=== PATIENT | male | born 1940 | race Caucasian/White ===

== ENCOUNTER 2016-07-16 07:49 | Outpatient (CLI) | payer MEDICARE, BC ==
[~2016-07-16] VITALS: Ht 185.4 cm; Wt 81.8 kg
--- NOTE | ~2016-07-16 | HEMODYNAMI ---
PATIENT:KITTY IRWIN MEDICAL RECORD: [id number] : 36 LOCATION:D.CAT ADMISSION DATE: 07/16/16 Generatedon:07/16/20169:33 Patient name: KITTY IRWIN Patient #: [id number] SSN: : 1940 Date of study: 07/16/2016 Page: Of Hemodynamic Procedure Report Patient Data Patient Demographics Procedure consent was obtained First Name: KITTY Gender: Male Last Name: ALIDA : 1940 Middle Initial: J Age: 76 year(s) Patient #: [id number] Race: Unknown Additional ID: [id number] Contact details Address: [address] [address] State: [place] City: [place] Zip code: [address] Past Medical History Allergies: No known allergies Admission Admission Data Admission Date: 07/16/2016 Admission Time: 7:49 Procedure Procedure Types Cath Procedure Diagnostic Procedure Cardioversion Procedure Description Procedure Date Procedure Date: 07/16/2016 Procedure Start Time: 9:05 Procedure Staff Name Function David Hair MD Performing Physician Analy Pack RN Nurse Danya Viramontes RT Monitor eDvan De La Paz RT Pulp Mixer Tanmay Hayes MD Additional personnel Procedure Data Cath Procedure Fluoroscopy Diagnostic fluoroscopy Total fluoroscopy Time: 0 time: 0 min min Procedure Medications Medication Administration Route Dosage Oxygen NC 2 l/min Refer to Anesthesia Notes for Sedation Medications Diprivan 1% I.V. 100 mg (Propofol) Hemodynamics Rest Heart Rate: 45 (bpm) Snapshots Pre Cath Intra NCS Post Cath Vital Signs Time Heart Resp SPO2 etCO2 [id number] Respiration NIBP (mmHg) Rhythm Pain Sedation Rate (ipm) (%) (mmHg) (mmHg) (CO2) (ipm) Status Level (bpm) 9:21:39 44 20 97 17.8 0 19 Measuring NSR 0 (11 ) 10(A) , No pain 9:21:49 44 26 97 29.7 1.4 21 181/69(137) NSR 0 (11 ) 8(A) , No pain 9:26:13 65 14 89 29 0 118/70(95) NSR 0 (11 ) 9(A) , No pain 9:30:21 66 20 99 8.9 0 10 114/74(110) NSR 0 (11 ) 10(A) , No pain Medications Time Medication Route Dose Verified Delivered Reason Notes Effectivene ss by by 9:21:14 Diprivan 1% I.V. [address] Hayes for (Propofol) mg Reginaldo BUTLER sedation 9:21:50 Oxygen NC 2 David Beckford used for l/min Reginaldo Pack parenting skills instructor 9:21:54 Refer to Davidmargarette Beckford Anesthesia Reginaldo Pack RN Notes for Sedation Medications Procedure Log Time Note 9:08:04 Devan De La Paz RT(R) sent for patient. Start room use. 9:08:05 Time tracking: Regular hours 9:08:14 Plan of Care:Hemodynamics will remain stable., Cardiac rhythm will remain stable., Comfort level will be maintained., Respiratory function will remain adequate., Patient/ family verbilizes understanding of procedure., Procedure tolerated without complication., Recovers from procedure without complications.. 9:13:06 Patient received from Pre/Post Procedure Room to CCL 1 Alert and oriented. Tansferred to table in Supine position. 9:13:07 Warm blankets applied, and dallin hugger turned on for patient comfort. 9:13:07 Correct patient and procedure confirmed by team. 9:13:09 Signed procedure consent form obtained from patient. 9:13:10 ECG and BP/O2 sat monitors applied to patient. 9:13:11 Full Disclosure recording started 9:13:58 H&P Date Dictated: 07/06/2016 Within 30 days and on chart., H&P Addendum completed by physician on day of procedure. (MUST COMPLETE FOR ALL OUTPATIENTS). 9:14:00 Pre-procedure instructions explained to patient. 9:14:01 Pre-op teaching completed and patient verbalized understanding. 9:14:05 Family in waiting room. 9:14:44 Patient allergic to No known allergies 9:14:54 ----Pre-sedation anethsthesia assessment.---- 9:15:09 See anestesia note for assessment 9:15:26 Patient pain scale 0/10 ?. 9:15:34 IV patent on arrival in left hand with 0.9% NaCl at [facility]. 9:15:39 Lab results completed and on chart. 9:16:22 Alarms reviewed by Isael Beal 9:16:30 Quick combo pads placed on patients chest and back. 9:16:38 Quick Combo opened to sterile field. 9:18:57 Baseline sample Acquired. 9:19:24 Dr Hayes present and monitoring patient for TIVA. 9:19:49 Vital chart was started 9:20:02 Final Timeout: patient, procedure, and site verified with staff and physician. All members of the team are in agreement. 9:20:07 Physical assessment completed. ASA score P 2 - A patient with mild systemic disease as per David Hair MD. 9:20:13 Sedation plan: TIVA Propofol 9:21:14 Diprivan 1% (Propofol) 100 mg I.V. was given by DR Hayes; for sedation; 9:21:50 Oxygen 2 l/min NC was given by Analy Pack RN; used for procedure; 9:21:54 Refer to Anesthesia Notes for Sedation Medications was given by Analy Pack RN; ; 9:23:13 Defibrillator synced and charged to 100 Joules. 9:23:17 Shock delivered. 9:23:28 Patient cardioverted to 1st degree heart block. 9:24:50 Procedure ended.(Physican Out) 9:30:03 Fluoroscopy time 00.00 minutes. 9:30:23 Post procedure rhythm: sinus bradycardia 9:30:46 Post procedure instruction explained to patient.Patient verbalizes understanding. 9:30:47 Patient needs reinforcement of post procedure teaching. 9:30:54 Procedure and supply charges have been captured, reviewed, submitted and are correct. 9:31:12 See physician's report for complete and final results. 9:31:16 Report given to Pre/Post Procedure Room. 9:33:00 Vital chart was stopped 9:33:07 Patient transfered to Pre/Post Procedure Room with Stretcher. 9:33:18 End room use (Document Last) Device Usage Item Manufacture Quantity Catalog Hospital Part Current Minimal Lot# / Name Number Charge Number Stock Stock Verena francis# Code [employer] 1 [id number] Combo Signature Audit [place] Stage Time Signature Unsigned Intra-Procedure 07/16/2016 Danya 9:33:29 AM Counts RT(R) Signatures Monitor : Danya Signature : Counts RT Date : Time : [address] [place] [address]
[2016-07-16] MEDS ORDERED: LISINOPRIL10 MG PO (08:16)
[2016-07-16] MEDS ORDERED: BETAPACE 80 MG80 MG PO (08:16)
[2016-07-16] MEDS ORDERED: XARELTO15 MG PO (08:16)
[2016-07-16 08:24] VITALS: BP 159/70; Ht 185.4 cm; Wt 81.8 kg
[2016-07-16 08:37] LABS: BASOPHILS 0.6 % (0.0-2.0); EOSINOPHILS 1.9 % (0-7); HEMATOCRIT 41.5 % (42.0-54.0); IMMATURE GRANULOCYTES 0.3 % (0-5); LYMPHOCYTES 32.9 % (15-50); MCH 28.2 pg (26.0-34.0); MCHC 33.7 g/dL (31.0-37.0); MCV 83.5 fL (80.0-100.0); MEAN PLATELET VOLUME 9.9 fL (7.4-10.4); MONOCYTES 8.8 % (2-11); NEUTROPHILS 55.5 % (40-80); PLATELET COUNT 209 10x3/uL (130-400); RBC 4.97 10x6/uL (4.20-6.10); RDW 14.1 % (11.5-14.5); WBC 7.3 10x3/uL (4.8-10.8)
[2016-07-16 08:47] LABS: INR 1.67 (0.85-1.17); PROTIME 19.6 SECONDS (11.6-15.0)
[2016-07-16 09:05] LABS: ANION GAP 11.3 mmol/L (8-16); CALCIUM 8.7 mg/dL (8.5-10.1); CARBON DIOXIDE 28.1 mmol/L (21.0-32.0); CREATININE - SERUM 1.2 mg/dL (0.6-1.3); POTASSIUM - SERUM 4.4 mmol/L (3.5-5.1)
--- NOTE | 2016-07-16 09:55 | NUR ---
RESTING IN BED, SPEAKING WITH FAMILY AT BEDSIDE. CARE TRANSITION MGR SHOWS SINUS LAWSON AT RATE OF 51. 2L NC, NO RESP DISTRESS, NO C/O PAIN. WILL CONTINUE TO MONITOR.
--- NOTE | 2016-07-16 10:25 | NUR ---
RESTING IN BED, FAMILY AT BEDSIDE. VSS, NO RESP DISTRESS NOTED. NO C/O NAUSEA OR CHEST PAIN. WILL CONTINUE TO MONITOR.
--- NOTE | 2016-07-16 10:40 | NUR ---
RONEL TRAY GIVEN. NO C/O N/V AT THIS TIME. NO DISTRESS NOTED. CM SHOWS RATE OF 40. VSS.
--- NOTE | 2016-07-16 12:00 | NUR ---
LEFT FA IV D/C'D WITH CATHETER INTACT. TOLERATED WELL. ASSISTED TO SIDE OF BED TO GET DRESSED.
--- NOTE | 2016-07-16 12:11 | NUR ---
DISCHARGE INSTRUCTIONS GIVEN. PT AND FAMILY VERBALIZED UNDERSTANDING.
--- NOTE | 2016-07-16 12:17 | NUR ---
TAKEN OUT FRONT VIA WHEELCHAIR BY MEMBER OF CATH CARE TEAM. LEFT FACILITY WITH FAMILY MEMBER.
--- NOTE | 2016-08-11 08:17 | OP ---
PATIENT NAME: KITTY GODOY MEDICAL RECORD: [id number] :36 LOCATION:D.CAT ADMISSION DATE: SURGEON: JUSTINO MARIA M.D. DATE OF OPERATION: 07/16/2016 Cardioversion Note REFERRING PHYSICIAN: Kyaw Godoy MD PROCEDURE PERFORMED: Cardioversion. INDICATION: A 76-year-old gentleman, presents with persistent atrial flutter. DESCRIPTION OF PROCEDURE: The patient was brought back to the offset label rewinder. It was confirmed he remained in atrial flutter with variable block. He received anesthesia in the form of propofol. Once the patient was adequately sedated, he received 1 discharge of 100 joules. This resulted in yazdanism of sinus rhythm. He tolerated the procedure well without any apparent complication. IMPRESSION: Successful cardioversion with yazdanism of sinus rhythm. TRANSINT:[id number] Voice Confirmation ID: [id number] DOCUMENT ID: [id number] JUSTINO MARIA M.D. at 0817 CC: [id number] DICTATION DATE: 07/16/16926 EDITORIAL PROJECT MANAGER: 07/16/16 1012 [facility] CLI 07/16/[address] [place] [address]
== END 2016-07-16 12:17 | disposition home or self-care (01) ==
LOC: D.CATH 07:49
PROVIDERS: Internal Medicine Cardiovascular Disease
DX: I48.92 Unspecified atrial flutter (principal)

== ENCOUNTER 2019-08-23 10:49 | Observation (INO) | payer MEDICARE, BC ==
[~2019-08-23] VITALS: Ht 185.4 cm; Wt 82.6 kg
[2019-08-23] VITALS (11 sets, daily range): BP systolic 111–164; BP diastolic 44–64; Ht 185.4 cm; Wt 82.6 kg
--- NOTE | ~2019-08-23 | HEMODYNAMI ---
PATIENT:KITTY IRWIN MEDICAL RECORD: [id number] : 36 LOCATION:D.CAT ADMISSION DATE: 08/23/19 Generatedon:08/23/201913:17 Patient name: KITTY IRWIN Patient #: [id number] SSN: [id number] : 1940 Date of study: 08/23/2019 Page: Of Hemodynamic Procedure Report Patient Data Patient Demographics Procedure consent was obtained First Name: KITTY Gender: Male Last Name: ALIDA : 1940 [facility] Initial: J Age: 79 year(s) Patient #: [id number] Race: SSN: [id number] Additional ID: [id number] Contact details Address: [place] [address] State: [place] City: [place] Zip code: [address] Past Medical History Allergies: No known allergies Admission Admission Data Admission Date: 08/23/2019 Admission Time: 10:49 Arrival Date: 08/23/2019 Arrival Time: 0:00 Lab Results Lab Result Date: 08/23/2019 Lab Result Time: 0:00 CBC Name Units Result Min Max Hematocrit % 38.1 *-(----)-- 42 54 Hemoglobin g/dl 12.5 *-(----)-- 13.5 17.5 Procedure Procedure Types Cath Procedure Diagnostic Procedure PPM/ICD PPM Dual Implant Sedation Charges Moderate Sedation up to 30 minutes Procedure Description Procedure Date Procedure Date: 08/23/2019 Procedure Start Time: 12:39 Procedure End Time: 13:14 Procedure Staff Name Function Anibal Buckley MD Performing Physician Dale Martinez MD Assisting physician Keeley Sanchez RT Monitor Varghese Hess RN Nurse Willa Mejia RT Scrub Indication Sick Sinus Syndrome Procedure Data Cath Procedure Fluoroscopy Diagnostic fluoroscopy Total fluoroscopy Time: 3.4 time: 3.4 min min Diagnostic fluoroscopy Total fluoroscopy dose: dose: 140.08 mGy 140.08 mGy Estimated blood loss: 10 ml Procedure Complications No complications Procedure Medications Medication Administration Route Dosage 0.9% NaCl I.V. 100 ml/hr Oxygen etCO2 Nasal cannula 4 l/min Lidocaine 1% added to field 20 Ancef (1Gm/50ml NS) I.V.P.B 1 g Ancef Irrigation 1 g (1gm/500ml NS) Versed I.V. 2 mg Fentanyl I.V. 100 mcg Versed I.V. 1 mg Hemodynamics Rest HGB: 12.5 (g/dl) Heart Rate: 44 (bpm) Snapshots Pre Cath Intra NCS Post Cath Vital Signs Time Heart Resp SPO2 etCO2 NIBP (mmHg) Rhythm Pain Sedation Rate (ipm) (%) (mmHg) Status Level (bpm) 12:28:19 46 12 99 27 151/64(111) SB 0 (11) 10(A) , No pain 12:32:41 44 10 99 9 131/59(90) SB 0 (11) 10(A) , No pain 12:36:59 42 21 98 23.2 102/51(83) SB 0 (11) 10(A) , No pain 12:41:05 177 15 96 27.7 108/52(84) SB 0 (11) 10(A) , No pain 12:45:13 43 15 91 26.2 110/55(75) SB 0 (11) 9(A) , No pain 12:49:21 82 15 95 21.7 79/52(74) SB 0 (11) 9(A) , No pain 12:54:16 42 16 96 18.7 115/58(88) SB 0 (11) 9(A) , No pain 12:58:19 95 16 96 24 121/73(91) Paced 0 (11) 10(A) , No pain 13:02:27 87 16 96 19.5 120/72(86) Paced 0 (11) 10(A) , No pain 13:06:33 84 18 96 9 131/74(99) Paced 0 (11) 10(A) , No pain 13:10:43 63 23 92 13.4 134/74(112) Paced 0 (11) 10(A) , No pain Medications Time Medication Route Dose Verified Delivered Reason Notes Effectiv eness by by 12:26:09 0.9% NaCl I.V. 100 Varghese Varghese Per ml/hr Jimena Hess physician RN RN 12:26:23 Oxygen etCO2 4 Varghese Varghese for low 02 Nasal l/min Lorigan Lorigan sats cannula RN RN 12:26:55 Lidocaine added 20ml Varghese Varghese for local 1% to vial Lorigan Lorigan anesthetic field ( x 2 RN RN ) 12:28:49 Ancef I.V.P.B 1 g Varghese Varghese Per (1Gm/50ml Lorigan Lorigan physician NS) RN RN 12:29:50 Ancef Topical 1 g Varghese Varghese used for Irrigation ( added Lorigan Lorigan procedure (1gm/500ml to RN RN NS) field ) 12:37:08 Versed I.V. 2 mg Varghese Varghese for Lorigan Lorigan sedation RN RN 12:37:22 Fentanyl I.V. 100 Varghese Varghese for mcg Lorigan Lorigan sedation RN RN 12:39:20 Versed I.V. 1 mg Varghese Varghese for Lorigan Lorigan sedation RN spring assembler supervisor Log Time Note 12:03:41 Informed consent obtained and on chart 12:04:25 Indication : Sick Sinus Syndrome 12:04:33 Arrival Date: 08/23/2019 12:00:00 AM 12:04:58 Procedure Status PPM/ Gen Change/ Lead Revision/ Temp. 12:05:02 Varghese Hess RN sent for patient. Start room use. 12:05:08 Time tracking: Regular hours (M-F 7:00 - 5:00) 12:05:15 Plan of Care:Hemodynamics will remain stable., Cardiac rhythm will remain stable., Comfort level will be maintained., Respiratory function will remain adequate., Patient/ family verbilizes understanding of procedure., Procedure tolerated without complication., Recovers from procedure without complications.. 12:05:40 [employer] u.s. representative WHITNEY HODGE present for procedure. 12:20:07 Patient received from Pre/Post Procedure Room to CCL 3 Alert and oriented. Tansferred to table in Supine position. 12:25:21 Warm blankets applied, and dallin hugger turned on for patient comfort. 12:25:22 Correct patient and procedure confirmed by team. 12:26:09 0.9% NaCl 100 ml/hr I.V. was administered by Varghese Hess RN; Per physician; Verbal order read back and verified. 12:26:23 Oxygen 4 l/min etCO2 Nasal cannula was administered by Varghese Hess RN; for low 02 sats; Verbal order read back and verified. 12:26:55 Lidocaine 1% 20ml vial ( x 2 ) added to field was administered by Varghese Hess RN; for local anesthetic; Verbal order read back and verified. 12:27:02 Vital chart was started 12:28:49 Ancef (1Gm/50ml NS) 1 g I.V.P.B was administered by Varghese Hess RN; Per physician; Verbal order read back and verified. 12:29:50 Ancef Irrigation (1gm/500ml NS) 1 g Topical ( added to field ) was administered by Varghese Hess RN; used for procedure; Verbal order read back and verified. 12:32:09 ECG and BP/O2 sat monitors applied to patient. 12:32:10 Baseline sample Acquired. 12:32:26 Rhythm: sinus bradycardia 12:32:29 Full Disclosure recording started 12:32:38 H&P Date Dictated: 08/23/2019 H&P Addendum completed by physician on day of procedure. (MUST COMPLETE FOR ALL OUTPATIENTS), New H&P dictated by physician.. 12:32:39 Pre-procedure instructions explained to patient. 12:32:40 Pre-op teaching completed and patient verbalized understanding. 12:32:49 Family unavailable. 12:32:52 Patient NPO since Midnight. 12:33:08 Patient allergic to No known allergies 12:33:13 Is the patient allergic to Iodine/contrast media? No. 12:33:17 Was the patient premedicated? Yes 12:33:21 Is patient on blood thinner?No 12:33:28 ACC The patient was administered the following blood thiners within the last 24 hours: None 12:34:08 Patient diabetic? No. 12:34:14 - 12:34:15 ----Pre-sedation anethsthesia assessment.---- 12:34:20 Previous problem with sedation/anesthesia? No ? 12:34:22 Snore? Yes 12:34:26 Sleep apnea? No 12:34:28 Deviated septum? No 12:34:30 Opens mouth fully? Yes 12:34:33 Sticks out tongue? Yes 12:34:39 Airway obstruction? No ? 12:34:46 Dentures? Yes in tight 12:35:07 IV patent on arrival in left forearm with 0.9% NaCl at [facility]. 12:35:48 Lab Result : Hemoglobin 12.5 g/dl 12:35:48 Lab Result : Hematocrit 38.1 % 12:36:02 Left chest area was prepped with chlora-prep and draped in sterile fashion 12:36:04 Alarms reviewed by R. N. 12:36:04 Sharps counted by scrub and verified by R.N. 12:36:06 Physician arrived 12:36:07 --------ALL STOP TIME OUT------ 12:36:08 Final Timeout: patient, procedure, and site verified with staff and physician. All members of the team are in agreement. 12:36:17 Left chest site verified by team. 12:36:28 Fire Safety Assessment: A--An alcohol-based skin anteseptic being used preoperatively., B--The operative or invasive procedure is being performed above the xiphoid process or in the oropharynx., D--An ESU, laser, or fiber-optic light is being used., E--There are other possible contributors. 12:36:35 Physical assessment completed. ASA score P 2 - A patient with mild systemic disease as per Anibal Buckley MD. 12:36:44 Sedation plan: IV Moderate Sedation Medication:Versed, Fentanyl 12:36:53 Use device set BRETT PPM 12:36:55 2-0 Ticron Multipack ([id number]) opened to sterile field. 12:36:56 3-0 Vicryl Single Pack [id number] opened to sterile field. 12:36:56 5-0 Monocryl PS2 [id number] opened to sterile field. 12:36:57 Cautery Tip Cdl Truck Driver opened to sterile field. 12:36:58 Cautery Pushbutton Pencil opened to sterile field. 12:36:59 Mepilex Dressing (571913) opened to sterile field. 12:37:08 Versed 2 mg I.V. was administered by Varghese Hess RN; for sedation; Verbal order read back and verified. 12:37:22 Fentanyl 100 mcg I.V. was administered by Varghese Hess RN; for sedation; Verbal order read back and verified. 12:38:54 Procedure started. 12:39:16 Pre sharps counted by scrub and verified by RN: Sutures: 7; Sponges: 5; Stick needles: 2; Skin needles: 2; Blade: 1; Cautery: 1 12:39:20 Versed 1 mg I.V. was administered by Varghese Hess RN; for sedation; Verbal order read back and verified. 12:39:22 Grounding pad site Left thigh. 12:39:24 Grounding pad site free from injury. 12:39:29 Lidocaine 1% was administered to left subclavicular area by Dale Martinez MD . 12:41:01 Incision made to left subclavicular area. 12:41:11 Generator pocket made/opened. 12:43:[address] [employer] [address]T [address] Generator [id number] opened to sterile field. 12:43:34 Left subclavian vein accessed with 7Fr Peel Away Sheath. 12:43:38 Left subclavian vein accessed with 7Fr Peel Away Sheath. 12:44:31 Medtronic 4074-58 PPM Lead opened to sterile field. 12:44:33 Medtronic 4574-53 PPM Lead opened to sterile field. 12:45:14 Ventricular lead inserted and advanced. 12:45:18 Atrial lead inserted and advanced. 12:52:05 Ventricular lead positioned. 12:52:12 Ventricular lead tested. 12:53:25 Atrial lead positioned. 12:53:28 Atrial lead tested. 12:53:40 Peel-a-way sheath was split and removed. 12:53:42 Peel-a-way sheath was split and removed. 12:55:25 PPM Dual was attached to lead(s) and inserted into pocket. 12:56:09 PPM Dual was inserted subcutaneously to left chest. 12:56:21 Device pocket was irrigated with Ancef. 12:56:39 Atrial lead attachment was completed with 2-0 ticron. 12:56:45 Ventricular lead attachment was completed with 2-0 ticron. 12:57:10 Generator was sutured in place with 2-0 ticron. 13:00:27 Subcutaneous closure was completed with 3-0 vicryl plus. 13:01:54 Parameters-- Generator: Mode: DDDR. Lower Rate: 60bpm. Upper Rate: 130bpm. 13:03:32 Skin closure was completed with 5-0 monocryl. 13:03:40 Lt Chest incision was dressed with 4 x 4 and Tegaderm. 13:03:47 Procedure ended.(Physican Out) 13:05:07 Parameters--Atrial P/R Wave: 3.1mV. Current: 0mA; Threshold: ?0.8V; Impedence: 532OHMS. 13:07:09 Parameters--Ventricular P/R Wave: 8.5mV. Current: 0mA; Threshold: 0.75V ; Impedence: 1026OHMS. 13:07:41 Fluoroscopy time 03.40 minutes. 13:07:48 Fluoroscopy dose: 140.08 mGy 13:07:48 Flurop Dose total: 140.08 13:07:59 Dose Area Product 1489.75 mGy/cm. 13:09:13 Sharps counted by scrub and verified by R.N. 13:09:43 Insertion/operative site no bleeding no hematoma. 13:09:56 Post Chest area:stable 13:10:05 Post-procedure physical assessment completed. ASA score P 2 - A patient with mild systemic disease as per Anibal Buckley MD. 13:10:09 Post procedure rhythm: paced 13:10:13 Estimated blood loss: 10 ml 13:10:15 Post procedure instruction explained to patient.Patient verbalizes understanding. 13:10:16 Patient needs reinforcement of post procedure teaching. 13:11:28 Post sharps counted by scrub and verified by RN: Sutures: 7; Sponges: 5 ; Stick needles: 2; Skin needles: 2; Blade: 1; Cautery: 1 13:11:57 Procedure type changed to Cath procedure, Diagnostic procedure, PPM/ICD , PPM Dual Implant, Sedation Charges, Moderate Sedation up to 30 minutes 13:12:00 Procedure and supply charges have been captured, reviewed, submitted an d are correct. 13:12:45 Procedure Complication : No complications 13:12:49 Vital chart was stopped 13:12:53 Operative report dictated upon procedure completion. 13:12:54 See physician's report for complete and final results. 13:12:58 Report given to CVICU. 13:13:04 Patient transfered to CVICU with Bed. 13:14:41 Procedure ended. 13:14:41 Full Disclosure recording stopped 13:14:44 End room use (Document Last) Device Usage Item Name Manufacture Quantity Catalog Hospital Part Current Minima l Lot# / Number Charge Number Stock Stock Serial# Code 2-0 Ticron Ethicon 0 [id number] 30057 178925 5 Multipack ([id number]) 3-0 Vicryl Ethicon 1 [id number] 271776 231157 5 Single Pack [id number] 5-0 Monocryl Ethicon 1 [id number] 940762 582566 713440 5 PS2 Y495G Cautery Tip Microtek 1 [id number] 170834 429602 503074 5 Cdl Truck Driver [employer] Cautery Microtek 1 [id number] 089691 21191 771470 5 Pushbutton [employer] Inc[employer] Pencil Mepilex Cardinal 1 [id number] 764039 929788 559460 5 Dressing Health (661014) Medtronic Medtronic 1 [id number] 692012 1288685 350360 [id number] 01-04-2021 Generator [id number] Medtronic Medtronic 1 4074-58 993467 631714 556178 5 [id number] 4074-58 PPM 03-29-2020 Lead Medtronic Medtronic 1 4574-53 968235 [id number] [id number] 5 [id number] 4574-53 PPM 04-03-2021 Lead Signature Audit Rossiter Stage Time Signature Unsigned Intra-Procedure 08/23/2019 Keeley 1:15:04 PM Laura RT(R) (CV) Intra-Procedure 08/23/2019 Varghese 1:16:28 PM Jimena SIDDIQUI Intra-Procedure 08/23/2019 Anibal Guerrero 1:17:13 PM Jj BUTLER [address] [place] [address]
--- NOTE | ~2019-08-23 | OP ---
PATIENT NAME: KITTY IRWIN MEDICAL RECORD: [id number] :36 LOCATION:D.I D.CV07 ADMISSION DATE: SURGEON: DALE WEST MD DATE OF OPERATION: 08/23/2019 PREOPERATIVE DIAGNOSIS: Sick sinus syndrome with aminah escape rhythm. POSTOPERATIVE DIAGNOSIS: Sick sinus syndrome with aminah escape rhythm. PROCEDURE: 1. Left subclavian vein dual lead pacemaker placement. 2. Fluoroscopic interpretation. SURGEON: Dale West MD CO-SURGEON: Anibal Tarango MD REPORT OF PROCEDURE: The patient's left chest was prepped and draped in sterile fashion. A 20 mL of 1% lidocaine with epinephrine was infused into the surrounding tissues. A transverse incision was made on the left superior lateral chest and a subcutaneous pouch was made over the pectoral fascia. The needles were used to cannulate the left subclavian vein and guidewires were advanced until they were noted to be within the superior vena cava. Fluoroscopy was used to manipulate the wire until they were in good position. At this point, the dilator trocar devices were placed over the wires and the wires and dilators were removed. The leads were advanced through the trocars until they were resting in the superior vena cava. At this point, Dr. Tarango positioned the leads appropriately in the atrium and ventricle. Once the leads were noted to be in good position, then these were sutured into place with 2-0 TiCron. The leads were affixed to the pacemaker, which was placed into the subcutaneous pouch. The pacemaker was sutured to the pectoral fascia using a single interrupted 2-0 Ti-Cron. The wound was then irrigated out with antibiotic solution. The subcutaneous tissues were reapproximated with interrupted 3-0 Vicryl and the skin was closed with running subcutaneous 5-0 Monocryl. COMPLICATIONS: None. CONDITION: Stable. ANESTHESIA: Local MAC. BLOOD LOSS: Minimal. TRANSINT:[id number] Voice Confirmation ID: [id number] DOCUMENT ID: [id number] DALE WEST MD CC: [id number] DICTATION DATE: 08/23/19 1304 SET UP MOLD TECHNICIAN: 08/23/19 1447 [facility] [address] [place] [address]
[~2019-08-23 10:49] MED LIST: BETAPACE 80 MG80 MG PO; LISINOPRIL10 MG PO; XARELTO15 MG PO
[2019-08-23] MEDS ORDERED: TOPROL XL25 MG PO (12:03)
[2019-08-23] MEDS ORDERED: BAYER CHEWABLE81 MG PO (12:04)
[2019-08-23] MEDS ORDERED: MULTI-DAY VITAM1 TAB PO (12:05)
[2019-08-23 12:07] LABS: HEMATOCRIT 38.1 % (42.0-54.0); HEMOGLOBIN 12.5 g/dL (13.5-17.5); MCH 27.8 pg (26.0-34.0); MCHC 32.8 g/dL (31.0-37.0); MCV 84.9 fL (80.0-100.0); MEAN PLATELET VOLUME 9.9 fL (7.4-10.4); RBC 4.49 10x6/uL (4.20-6.10); RDW 14.3 % (11.5-14.5); WBC 6.7 10x3/uL (4.8-10.8)
[2019-08-23 12:14] LABS: ANION GAP 12.8 mmol/L (8-16); CALCIUM 8.7 mg/dL (8.5-10.1); CARBON DIOXIDE 25.5 mmol/L (21.0-32.0); CREATININE - SERUM 1.2 mg/dL (0.6-1.3); POTASSIUM - SERUM 4.3 mmol/L (3.5-5.1)
[2019-08-23 12:17] LABS: APTT 37.1 SECONDS (22.8-39.4); INR 1.06 (0.85-1.17); PROTIME 13.8 SECONDS (11.6-15.0)
[2019-08-23 15:56] LABS: APTT 38.3 SECONDS (22.8-39.4); INR 1.17 (0.85-1.17); PROTIME 14.9 SECONDS (11.6-15.0)
[2019-08-23 16:23] LABS: ANION GAP 10.6 mmol/L (8-16); CALCIUM 8.1 mg/dL (8.5-10.1); CARBON DIOXIDE 26.9 mmol/L (21.0-32.0); CREATININE - SERUM 1.1 mg/dL (0.6-1.3); POTASSIUM - SERUM 4.5 mmol/L (3.5-5.1)
[2019-08-24] VITALS (10 sets, daily range): BP systolic 106–161; BP diastolic 53–81
--- NOTE | 2019-08-24 09:07 | OP ---
PATIENT NAME: DEMIAN IRWIN MEDICAL RECORD: [id number] :38 LOCATION:TESSA DyerCV07 ADMISSION DATE:08/23/19 SURGEON: LEXI CRUZ MD DATE OF OPERATION: 08/23/2019 PROCEDURE: Lead portion of permanent pacemaker placement. SURGEON: Dale Martinez MD INDICATION: Sick sinus syndrome with aminah escape rhythm, syncope. DESCRIPTION OF PROCEDURE: After the left subclavian was cannulated via modified Seldinger technique via Dr. Martinez first under fluoroscopic guidance, the RV lead was placed in the RV apex without difficulty. After adequate R waves and thresholds were obtained, the right atrial lead was placed in the right atrial appendage without difficulty. After adequate P waves and thresholds were obtained, the leads were then attached to appropriate poles on the generator and the pocket was closed via Dr. Martinez. IMPRESSION: Successful lead portion of permanent pacemaker placement on Demian Irwin. ESTIMATED BLOOD LOSS: Minimal. COMPLICATIONS: None. DISPOSITION: To the floor, stable. TRANSINT:[id number] Voice Confirmation ID: [id number] DOCUMENT ID: [id number] LEXI CRUZ MD at 0907 CC: [id number] DICTATION DATE: 08/23/19 1339 CLINICAL RESEARCH NURSE: 08/23/19 1511 ADM IN [place] [id number] [place] [id number]
== END 2019-08-24 09:45 | disposition home or self-care (01) ==
LOC: D.CATH 10:49 → D.CVICU 13:22 → D.CATH 14:57 → OBSVTIME 14:59 → D.CVICU 08-24 09:45
PROVIDERS: ADMIT Internal Medicine Interventional Cardiology; ATTEND Internal Medicine Interventional Cardiology
DX: I49.5 Sick sinus syndrome (principal)

== ENCOUNTER 2019-12-25 10:14 | Inpatient (IN) | payer MEDICARE, BC ==
[~2019-12-25] VITALS: Ht 185.4 cm; Wt 83.0 kg
[~2019-12-25 10:14] MED LIST changes: +BAYER CHEWABLE81 MG PO; +MULTI-DAY VITAM1 TAB PO; +TOPROL XL25 MG PO
[2019-12-25 12:32] LABS: BASOPHILS 0.2 % (0-2); HEMATOCRIT 37.8 % (42.0-54.0); HEMOGLOBIN 12.7 g/dL (13.5-17.5); IMMATURE GRANULOCYTES 0.4 % (0-5); LYMPHOCYTES 22.5 % (15-50); MCH 27.8 pg (26.0-34.0); MCHC 33.6 g/dL (31.0-37.0); MCV 82.7 fL (80.0-100.0); MEAN PLATELET VOLUME 9.7 fL (7.4-10.4); MONOCYTES 7.4 % (2-11); NEUTROPHILS 68.5 % (40-80); PLATELET COUNT 199 10x3/uL (130-400); RBC 4.57 10x6/uL (4.20-6.10); RDW 13.7 % (11.5-14.5); WBC 4.9 10x3/uL (4.8-10.8)
[2019-12-25 12:51] LABS: INR 0.97 (0.85-1.17); PROTIME 12.9 SECONDS (11.6-15.0)
[2019-12-25 12:53] LABS: D-DIMER-QUANTITATIVE 0.78 ug/mLFEU (0.20-0.54)
[2019-12-25 12:56] LABS: ALBUMIN 3.4 g/dL (3.4-5.0); ANION GAP 11.8 mmol/L (8-16); BILIRUBIN - TOTAL 0.44 mg/dL (0.2-1.3); CALCIUM 8.8 mg/dL (8.5-10.1); CARBON DIOXIDE 26.6 mmol/L (21.0-32.0); CREATININE - SERUM 1.2 mg/dL (0.6-1.3); POTASSIUM - SERUM 4.4 mmol/L (3.5-5.1); PROTEIN - SERUM 7.7 g/dL (6.4-8.2)
[2019-12-25 12:58] LABS: ALBUMIN 3.6 g/dL (3.4-5.0); BILIRUBIN - DIRECT 0.13 mg/dL (0.00-0.30); BILIRUBIN - INDIRECT 0.27 mg/dL (0.00-1.00); BILIRUBIN - TOTAL 0.4 mg/dL (0.2-1.3); C-REACTIVE PROTEIN 2.3 mg/dL (0.0-0.9); PROTEIN - SERUM 7.5 g/dL (6.4-8.2)
[2019-12-25 15:57] VITALS: BP 156/71; Ht 185.4 cm; Wt 83.0 kg
[2019-12-25 19:28] LABS: BILIRUBIN NEGATIVE (NEGATIVE); GLUCOSE NEGATIVE (NEGATIVE); KETONE NEGATIVE (NEGATIVE); NITRITE NEGATIVE (NEGATIVE); UROBILINOGEN NORMAL (NORMAL)
--- NOTE | 2019-12-25 19:30 | NUR ---
RECEIVED REPORT, WILL ASSUME CARE OF PT, PT IS SLEEPING, NO DISTRESS NOTICED AT THIS TIME, BED IS LOW, SRX2, CALL LIGHT IN REACH, WILL CONTINUE PLAN OF CARE
[2019-12-25 20:00] VITALS: BP 129/62
--- NOTE | 2019-12-26 04:15 | NUR ---
I have reviewed this patient and I concur with the Shift Assessment completed by the Licensed Practical Nurse today this shift.
--- NOTE | 2019-12-26 07:45 | NUR ---
REPORT RECIEVED. PT SITTING SEMI FOWLERS IN BED. RR EVEN AND UNLABORED ON RA. HE HAS A L FA PIV INFUSING D51/2NS @ 30. BED LOCKED AND IN LOWEST POSITION, CALL LIGHT WITHIN REACH. WILL CTM
[2019-12-26 08:46] VITALS: BP 138/56
[2019-12-26 11:10] LABS: BASOPHILS 0.2 % (0-2); EOSINOPHILS 0 % (0-7); HEMATOCRIT 33.5 % (42.0-54.0); HEMOGLOBIN 11.3 g/dL (13.5-17.5); IMMATURE GRANULOCYTES 0.2 % (0-5); LYMPHOCYTES 23.2 % (15-50); MCH 27.5 pg (26.0-34.0); MCHC 33.7 g/dL (31.0-37.0); MCV 81.5 fL (80.0-100.0); MONOCYTES 8.6 % (2-11); NEUTROPHILS 67.8 % (40-80); PLATELET COUNT 178 10x3/uL (130-400); RBC 4.11 10x6/uL (4.20-6.10); RDW 13.4 % (11.5-14.5); WBC 4.7 10x3/uL (4.8-10.8)
[2019-12-26 11:25] LABS: ALBUMIN 2.8 g/dL (3.4-5.0); ANION GAP 13.7 mmol/L (8-16); BILIRUBIN - TOTAL 0.48 mg/dL (0.2-1.3); CALCIUM 8.1 mg/dL (8.5-10.1); CARBON DIOXIDE 23.2 mmol/L (21.0-32.0); CREATININE - SERUM 1.4 mg/dL (0.6-1.3); POTASSIUM - SERUM 3.9 mmol/L (3.5-5.1); PROTEIN - SERUM 6.6 g/dL (6.4-8.2)
[2019-12-26 13:50] VITALS: BP 129/57
[2019-12-26 15:43] VITALS: BP 108/47
--- NOTE | 2019-12-26 18:36 | NUR ---
I have reviewed this patient and I concur with the Shift Assessment completed by the Licensed Practical Nurse today this shift.
--- NOTE | 2019-12-26 19:45 | NUR ---
PT SITTING UP IN BED WATCHING TV. NO DISTRESS NOTED. HE DENIES PAIN, SHORTNESS OF BREATH OR NEEDS AT THIS TIME. HIS BED IS LOW AND CALL LIGHT IS WITHIN REACH.
[2019-12-26 20:00] VITALS: BP 132/52
[2019-12-27 04:00] VITALS: BP 150/67
--- NOTE | 2019-12-27 07:30 | NUR ---
REPORT RECIEVED. PT SITTING UP IN BEDSIDE CHAIR. RR EVEN AND UNLABORED ON RA. PT HAS A L FA PIV INFUSING NS @50. PT HAS NO NEEDS AT THIS TIME. BED LOCKED AND IN LOWEST POSITION, CALL LIGHT WITHIN REACH. WILL CTM
[2019-12-27 09:36] VITALS: BP 128/89
--- NOTE | 2019-12-27 10:16 | MORECARE ---
CASE MANAGEMENT DISCHARGE SUMMARY PATIENT: KITTY IRWIN UNIT: [id number] ADM DATE: 12/25/19 AGE: 79 : 38 SEX: M ROOM/BED: D.2140 AUTHOR: MARITZA KERR PHYSICIAN: REFERRING PHYSICIAN: DARIAN IRWIN MD DATE OF SERVICE: 12/27/19 Discharge Plan Patient Name: KITTY IRWIN [facility] [facility] 1940 Planned Disposition: Home or Self Care Anticipated Discharge Date: Discharge Date: Expected LOS: Initial Reviewer: [email or web address] Initial Review Date: 12/25/2019 Generated: 12/27/19 11:15 am DCPIA - Discharge Planning Initial Assessment Updated by [email or web address]: Yumiko Peralta on 12/27/19 10:13 am * Is the patient Alert and Oriented? Yes * How many steps to enter\exit or inside your home? 0/1 * PCP ALIDA * Pharmacy [facility] * Preadmission Environment Home with Family * ADLs Independent * Equipment None * List name and contact numbers for known caregivers / representatives who currently or will assist patient after discharge: DANIEL EMERY [phone] * Verbal permission to speak to the caregivers and representatives has been obtained from the patient. Yes * Community resources currently utilized None * Additional services required to return to the preadmission environment? No * Can the patient safely return to the preadmission environment? Yes * Has this patient been hospitalized within the prior 30 days at any hospital? No Patient Name: KITTY IRWIN Page [id number] at 1016 All edits/amendments must be made on the electronic document DICTATION DATE: 12/27/19 1015 PIANO PROFESSOR: MEREDITH 12/27/19 1015 RPT#: [id number] DC DATE: STATUS: ADM IN [facility] [address] [place] [address] END OF REPORT
--- NOTE | 2019-12-27 10:22 | MORECARE ---
CASE MANAGEMENT DISCHARGE SUMMARY PATIENT: KITTY IRWIN UNIT: [id number] ADM DATE: 12/25/19 AGE: 79 : 38 SEX: M ROOM/BED: D.2140 AUTHOR: USHA,DOC PHYSICIAN: REFERRING PHYSICIAN: DARIAN IRWIN MD DATE OF SERVICE: 12/27/19 Discharge Plan Patient Name: KITTY IRWIN Facility: [facility]:[place] : 1940 Planned Disposition: Home or Self Care Anticipated Discharge Date: Discharge Date: Expected LOS: Initial Reviewer: [email or web address] Initial Review Date: 12/25/2019 Generated: 12/27/19 11:22 am Comments DCP- Discharge Planning Updated by [email or web address]: Yumiko Peralta on 12/27/19 9:[address] Patient Name: KITTY IRWIN Admission Status: Elective Accout number: [id number] Admission Date: 12-25-2019 : 1940 Admission Diagnosis: Attending: DARIAN IRWIN Current LOS: 2 Anticipated DC Date: Planned Disposition: Home or Self Care Primary Insurance: MEDICARE A & B Discharge Planning Comments: CM called patient room to complete initial dc planning assessment. CM educated patient on the CM role and verbal consent given by patient to complete assessment. CM verified patient's address, phone number, and emergency contact phone numbers. Patient lives at home with his Erma ([phone]). At discharge patient plans to return home and feels this is a safe discharge. CM discussed availability of home health, rehab services, and medical equipment. Patient denied known discharge needs at this time. Declination verbalized for any additional needs at home. Transportation provider at discharge will be Erma . CM will continue to follow and will assist as needed with dc plans/needs. [employer]: Yumiko Peralta DCPIA - Discharge Planning Initial Assessment Updated by [email or web address]: Yumiko Peralta on 12/27/19 10:13 am * Is the patient Alert and Oriented? Yes * How many steps to enter\exit or inside your home? 0/1 * PCP ALIDA * Pharmacy [facility] * Preadmission Environment Home with Family * ADLs Independent * Equipment None * List name and contact numbers for known caregivers / representatives who currently or will assist patient after discharge: ERMA EMERY [phone] * Verbal permission to speak to the caregivers and representatives has been obtained from the patient. Yes * Community resources currently utilized None * Additional services required to return to the preadmission environment? No * Can the patient safely return to the preadmission environment? Yes * Has this patient been hospitalized within the prior 30 days at any hospital? No Last DP export: 12/27/19 9:15 am Patient Name: KITTY IRWIN Page [id number] at 1022 All edits/amendments must be made on the electronic document DICTATION DATE: 12/27/19 1022 CADMIUM BURNER: MEREDITH 12/27/19 1022 RPT#: [id number] DC DATE: STATUS: ADM IN [facility] [address] [place] [address] END OF REPORT
[2019-12-27 11:42] LABS: BASOPHILS 0.1 % (0-2); EOSINOPHILS 0 % (0-7); HEMATOCRIT 34.8 % (42.0-54.0); HEMOGLOBIN 11.8 g/dL (13.5-17.5); IMMATURE GRANULOCYTES 0.4 % (0-5); MCH 27.8 pg (26.0-34.0); MCHC 33.9 g/dL (31.0-37.0); MCV 82.1 fL (80.0-100.0); MEAN PLATELET VOLUME 10.1 fL (7.4-10.4); MONOCYTES 5.7 % (2-11); NEUTROPHILS 85.8 % (40-80); RBC 4.24 10x6/uL (4.20-6.10); RDW 13.9 % (11.5-14.5)
[2019-12-27 12:00] LABS: PLATELET COUNT 236 10x3/uL (130-400); WBC 12.4 10x3/uL (4.8-10.8)
[2019-12-27 12:03] LABS: ANION GAP 11.8 mmol/L (8-16); BILIRUBIN - TOTAL 0.24 mg/dL (0.2-1.3); CALCIUM 8.4 mg/dL (8.5-10.1); CARBON DIOXIDE 25.8 mmol/L (21.0-32.0); CREATININE - SERUM 1.4 mg/dL (0.6-1.3); POTASSIUM - SERUM 3.6 mmol/L (3.5-5.1); PROTEIN - SERUM 7.5 g/dL (6.4-8.2)
[2019-12-27 13:49] VITALS: BP 115/51
--- NOTE | 2019-12-27 19:30 | NUR ---
PT A/O X4. RR EVEN AND UNLABORED 97% RA WITH STABLE VITALS AND NO COMPLAINTS. PT VERY PLEASENT. PT EXPRESSED CONCERN AT THIS TIME IS IF HIS COULD HAVE COVID. PT STATES TESTED NEGATIVE AND HE POSITIVE. OHERWISE PT COMPLAINS OF NO PAIN OR ANY FURTHER NEEDS. WILL CONTINUE TO MONITOR.
[2019-12-27 20:00] VITALS: BP 135/43
--- NOTE | 2019-12-27 23:12 | NUR ---
PT RESTING IN BED WITH EYES CLOSED. RR EVEN AND UNLABORED. DOXY INFUSING AT THIS TIME. BED LOW CALL LIGHT WITHIN REACH. VITALS STABLE. WILLCONTINUE TO MONITOR.
[2019-12-28] VITALS: BP 125/68
--- NOTE | 2019-12-28 03:53 | NUR ---
I have reviewed this patient and I concur with the Shift Assessment completed by the Licensed Practical Nurse today this shift.
[2019-12-28 04:00] VITALS: BP 146/57
[2019-12-28 06:12] LABS: BASOPHILS 0.1 % (0-2); EOSINOPHILS 0 % (0-7); HEMATOCRIT 32.2 % (42.0-54.0); HEMOGLOBIN 10.9 g/dL (13.5-17.5); IMMATURE GRANULOCYTES 0.5 % (0-5); LYMPHOCYTES 14.8 % (15-50); MCH 27.5 pg (26.0-34.0); MCHC 33.9 g/dL (31.0-37.0); MCV 81.1 fL (80.0-100.0); MONOCYTES 5.3 % (2-11); NEUTROPHILS 79.3 % (40-80); PLATELET COUNT 229 10x3/uL (130-400); RBC 3.97 10x6/uL (4.20-6.10); RDW 13.8 % (11.5-14.5); WBC 10.4 10x3/uL (4.8-10.8)
[2019-12-28 06:42] LABS: ALBUMIN 2.7 g/dL (3.4-5.0); ANION GAP 15.5 mmol/L (8-16); BILIRUBIN - TOTAL 0.27 mg/dL (0.2-1.3); CALCIUM 7.9 mg/dL (8.5-10.1); CARBON DIOXIDE 20.6 mmol/L (21.0-32.0); CREATININE - SERUM 1.3 mg/dL (0.6-1.3); POTASSIUM - SERUM 4.1 mmol/L (3.5-5.1); PROTEIN - SERUM 6.6 g/dL (6.4-8.2)
--- NOTE | 2019-12-28 07:33 | NUR ---
REPORT RECIEVED. PT SITTING UP IN BEDSIDE CHAIR. RR EVEN AND UNLABORED ON RA. PT HAS A L FA PIV INFUSING NS @ 50. PT HAS NO COMPLAINTS AT THIS TIME. WILL CTM
[2019-12-28 09:12] VITALS: BP 141/54
[2019-12-28 12:54] VITALS: BP 110/42
[2019-12-28 16:26] VITALS: BP 107/47
--- NOTE | 2019-12-28 18:10 | NUR ---
I have reviewed this patient and I concur with the Shift Assessment completed by the Licensed Practical Nurse today this shift.
[2019-12-29 06:46] LABS: BASOPHILS 0.1 % (0-2); EOSINOPHILS 2.7 % (0-7); HEMATOCRIT 31.2 % (42.0-54.0); HEMOGLOBIN 10.5 g/dL (13.5-17.5); IMMATURE GRANULOCYTES 1.1 % (0-5); MCH 27.3 pg (26.0-34.0); MCHC 33.7 g/dL (31.0-37.0); MEAN PLATELET VOLUME 9.8 fL (7.4-10.4); NEUTROPHILS 74.1 % (40-80); PLATELET COUNT 240 10x3/uL (130-400); RBC 3.85 10x6/uL (4.20-6.10)
[2019-12-29 06:47] LABS: WBC 7.1 10x3/uL (4.8-10.8)
[2019-12-29 07:11] LABS: ALBUMIN 2.5 g/dL (3.4-5.0); ANION GAP 13.9 mmol/L (8-16); BILIRUBIN - TOTAL 0.28 mg/dL (0.2-1.3); CALCIUM 7.7 mg/dL (8.5-10.1); CARBON DIOXIDE 22.1 mmol/L (21.0-32.0); CREATININE - SERUM 1.2 mg/dL (0.6-1.3); PROTEIN - SERUM 6.5 g/dL (6.4-8.2)
[2019-12-29 07:28] VITALS: BP 131/68
[2019-12-29 10:43] VITALS: BP 125/71
[2019-12-29 14:37] VITALS: BP 117/50
--- NOTE | 2019-12-30 03:42 | NUR ---
I have reviewed this patient and I concur with the Shift Assessment completed by the Licensed Practical Nurse today this shift.
[2019-12-30 05:30] LABS: BASOPHILS 0.2 % (0-2); EOSINOPHILS 0 % (0-7); HEMATOCRIT 32.2 % (42.0-54.0); HEMOGLOBIN 10.8 g/dL (13.5-17.5); IMMATURE GRANULOCYTES 0.7 % (0-5); LYMPHOCYTES 15.6 % (15-50); MCH 27.4 pg (26.0-34.0); MCHC 33.5 g/dL (31.0-37.0); MCV 81.7 fL (80.0-100.0); MEAN PLATELET VOLUME 9.7 fL (7.4-10.4); MONOCYTES 7.6 % (2-11); NEUTROPHILS 75.9 % (40-80); RBC 3.94 10x6/uL (4.20-6.10); RDW 14.1 % (11.5-14.5)
[2019-12-30 05:41] LABS: PLATELET COUNT 300 10x3/uL (130-400); WBC 10.5 10x3/uL (4.8-10.8)
[2019-12-30 06:02] LABS: ALBUMIN 2.6 g/dL (3.4-5.0); ANION GAP 14.1 mmol/L (8-16); BILIRUBIN - TOTAL 0.22 mg/dL (0.2-1.3); CARBON DIOXIDE 21.9 mmol/L (21.0-32.0); CREATININE - SERUM 1.2 mg/dL (0.6-1.3); PROTEIN - SERUM 6.8 g/dL (6.4-8.2)
[2019-12-30] MEDS ORDERED: DOXYCYCLINE HY100 M2 PO (08:26)
[2019-12-30] MEDS ORDERED: OMNICEF300 MG PO (08:26)
[2019-12-30] MEDS ORDERED: DECADRON4 MG PO (08:33)
[2019-12-30] MEDS ORDERED: RESTORIL15 MG PO (08:34)
[2019-12-30 08:57] VITALS: BP 138/66
--- NOTE | 2019-12-30 11:00 | NUR ---
DC INFORMATION REVIEWED WITH PT. PT VERBALIZES UNDERSTANDING. IV AND TELY REMOVED FROM PT. PT PERSONAL BELONGINGS AT THE BEDSIDE, PT LEFT WITH AIDE TO DC TO PERSONAL CAR. PT GIVEN N95 MASK AND SHIELD TO WEAR.
--- NOTE | 2019-12-30 12:56 | MORECARE ---
CASE MANAGEMENT DISCHARGE SUMMARY PATIENT: KITTY IRWIN UNIT: [id number] ADM DATE: 12/25/19 AGE: 79 : 38 SEX: M ROOM/BED: D.2140 AUTHOR: MARITZA KERR PHYSICIAN: REFERRING PHYSICIAN: DARIAN IRWIN MD DATE OF SERVICE: 12/30/19 Discharge Plan Patient Name: KITTY IRWIN Facility[facility]:[place] : 1940 Planned Disposition: Home or Self Care Anticipated Discharge Date: Discharge Date: 12/30/2019 Expected LOS: Initial Reviewer: [email or web address] Initial Review Date: 12/25/2019 Generated: 12/30/19 1:55 pm DCP- Discharge Planning Updated by [email or web address]: Yumiko Peralta on 12/27/19 9:[address] Patient Name: KITTY IRWIN Admission Status: Elective Accout number: [id number] Admission Date: 12-25-2019 : 1940 Admission Diagnosis: Attending: DARIAN IRWIN Current LOS: 2 Anticipated DC Date: Planned Disposition: Home or Self Care Primary Insurance: MEDICARE A & B Discharge Planning Comments: CM called patient room to complete initial dc planning assessment. CM educated patient on the CM role and verbal consent given by patient to complete assessment. CM verified patient's address, phone number, and emergency contact phone numbers. Patient lives at home with his Erma ([phone]). At discharge patient plans to return home and feels this is a safe discharge. CM discussed availability of home health, rehab services, and medical equipment. Patient denied known discharge needs at this time. Declination verbalized for any additional needs at home. Transportation provider at discharge will be Erma . CM will continue to follow and will assist as needed with dc plans/needs. Crossing Guard: Yumiko Peralta DCPIA - Discharge Planning Initial Assessment Updated by [email or web address]: Yumiko Peralta on 12/27/19 10:13 am * Is the patient Alert and Oriented? Yes * How many steps to enter\exit or inside your home? 0/1 * PCP ALIDA * Pharmacy [facility] * Preadmission Environment Home with Family * ADLs Independent * Equipment None * List name and contact numbers for known caregivers / representatives who currently or will assist patient after discharge: ERMA EMERY [phone] * Verbal permission to speak to the caregivers and representatives has been obtained from the patient. Yes * Community resources currently utilized None * Additional services required to return to the preadmission environment? No * Can the patient safely return to the preadmission environment? Yes * Has this patient been hospitalized within the prior 30 days at any hospital? No Coverage Notice Reviewer: [email or web address] Mika Trujillo Notice Issued Date-Time: 12/30/2019 9:29 Notice Type: IM Discharge Notice Notice Delivered To: Patient Relationship to Patient: Self [place] Operator Name: Delivery Method: HAND - Hand Delivered Leny Days: Prior Verbal Notification: Yes Recipient Understood Notice: Yes Recipient Signature: Med Rec Note Co-signed by Attending: Coverage Notice Comment: PATIENT IN ISOLATION VERBAL NOTIFICATION COPY SENT IN WITH NURSING FOR DISCHARGE Last DP export: 12/27/19 9:22 am Patient Name: KITTY IRWIN Page 52895 at 1256 All edits/amendments must be made on the electronic document DICTATION DATE: 12/30/19 1255 BUFFET WAITER/WAITRESS: MEREDITH 12/30/19 1255 RPT#: [id number] DC DATE:12/30/19 STATUS: DIS IN [facility] [address] [place] [address] END OF REPORT
== END 2019-12-30 11:00 | disposition home or self-care (01) | DRG 177 ==
LOC: D.M2 10:14
PROVIDERS: Family Medicine; Internal Medicine Pulmonary Disease; ADMIT Family Medicine; ATTEND Family Medicine
DX: U07.1 COVID-19 (principal); J12.89 Other viral pneumonia; N17.9 Acute kidney failure, unspecified; E87.1 Hypo-osmolality and hyponatremia; R06.03 Acute respiratory distress; I10 Essential (primary) hypertension; I48.91 Unspecified atrial fibrillation; H91.93 Unspecified hearing loss, bilateral; J30.9 Allergic rhinitis, unspecified; Z87.891 Personal history of nicotine dependence